=== PATIENT | male | born 1990 | race Caucasian/White ===

== ENCOUNTER 2024-01-25 00:35 | Emergency (ER) | payer SELFPAY ==
[2024-01-25 00:42] VITALS: BP 149/80
[2024-01-25 00:44] VITALS: BP 149/80
[2024-01-25 00:59] LABS: Glucose - Point of Care 91 mg/dl (70-99)
[2024-01-25 01:00] VITALS: BP 133/71
--- NOTE | 2024-01-25 01:13 | ED.GENMED ---
History of Present Illness
<Octavio Pyle PA-C - Last Filed: 01/25/24 01:21>
General
Chief Complaint: Change Level of Consciousness
Source: police
Time Seen by Provider: 01/25/24 01:06
Travel History
Have you had any contact with someone who has COVID-19?: Unable to Answer
Do you have any symptoms of coronavirus? Fever > 100 degrees, chills, cough, shortness of breath, sore throat, loss of taste or smell, muscle aches, or headache?: Unable to Answer
History of Present Illness
History of Present Illness:
33-year-old male presenting the emergency department via [place] police for medical clearance for incarceration. Patient was picked up on a warrant in [place] but this morning was apparently valid in [facility] so patient was brought here.
Patient admits to active substance abuse with last use being a few hours ago. No other physical complaints. Patient clearly intoxicated.
Past History
<Octavio Pyle PA-C - Last Filed: 01/25/24 01:21>
Past History
ED Past Medical History: Psychiatric
ED Past Surgical History: None
Social History
Tobacco: Smoker
Alcohol: None
Drug: Narcotics and IVDA
Personal: Single
Living: alone
Review of Systems
<Octavio Pyle PA-C - Last Filed: 01/25/24 01:21>
Review of Systems
All Other Systems: ROS reviewed and negative except as documented in HPI and ROS
Phy Exam
<Octavio Pyle PA-C - Last Filed: 01/25/24 01:21>
Physical Exam
Physical Exam:
GENERAL: Sleeping but arousable to voice, in no apparent distress
EYE: conjunctiva clear, pupils 2 mm
Head: Normocephalic atraumatic
NECK: Supple,
ENT: Mildly dry mucous membranes
LUNGS: no acute respiratory distress
NEUROLOGICAL: Alert and oriented
SKIN: Warm and dry, small older appearing right axillary abscess with mild erythema
MUSCULOSKELETAL: well perfused.
PSYCH: Normal and appropriate interaction.
Scores
<Octavio Pyle PA-C - Last Filed: 01/25/24 01:21>
Heart Failure Risk
Heart Failure Risk Score: Not Applicable
Heart Score for Chest Pain Patients
STEMI patient?: Not applicable
Withdrawal Assessment of Alcohol
Withdrawal Assessment Completed?: Not applicable
Course
<Octavio Pyle PA-C - Last Filed: 01/25/24 01:21>
Orders/Labs/Results
Orders:
Orders
01/25/24 00:48
Electrocardiogram (*1) Urgent
Reason for Study: Other
Other Reason for Exam: Potential overdose
01/25/24 00:48
01/25/24 00:48
Vital Signs
Initial and Last Documented VS:
Initial Vital Signs
Pulse Ox
99
01/25/24 00:41
Last Documented Vital Signs
Temp Pulse Resp BP Pulse Ox
98.5 F 87 19 133/71 100
01/25/24 00:44 01/25/24 01:15 01/25/24 01:15 01/25/24 01:00 01/25/24 01:15
<Maximus Cagle DO - Last Filed: 01/25/24 02:19>
Orders/Labs/Results
Orders:
Orders
01/25/24 00:48
Electrocardiogram (*1) Urgent
Reason for Study: Other
Other Reason for Exam: Potential overdose
01/25/24 00:48
01/25/24 00:48
Vital Signs
Initial and Last Documented VS:
Initial Vital Signs
Pulse Ox
99
01/25/24 00:41
Last Documented Vital Signs
Temp Pulse Resp BP Pulse Ox
98.5 F 87 19 133/71 100
01/25/24 00:44 01/25/24 01:15 01/25/24 01:15 01/25/24 01:00 01/25/24 01:15
<Octavio Pyle PA-C - Last Filed: 01/25/24 01:21>
MDM/Problems Addressed
MDM/Problems Addressed:
33-year-old male presenting emergency department for medical clearance. Patient does have a older appearing abscess to his right axilla. He otherwise has no indication for continued emergency department evaluation and is medically cleared for
incarceration. Prescription for doxycycline and Zofran provided.
<Octavio Pyle PA-C - Last Filed: 01/25/24 01:21>
*Pulse Oximetry
Patient hypoxic: no
*Critical Care Note
Total Time (30-74mins, 75-104mins- exclusive of procedures): Not Applicable
ED Attending Note
<Octavio Pyle PA-C - Last Filed: 01/25/24 01:21>
-
Portions of this chart may have been created with voice recognition software.� Occasional wrong word or��sound alike� substitutions may have occurred due to the inherent limitations of voice recognition software.
<Maximus Cagle DO - Last Filed: 01/25/24 02:19>
ED Attending Note
Patient seen and examined by attending physician: Yes
I performed the substantive portion of visit, reviewed & personally made and approve the management plan that is documented in note by myself or TORIN.: Yes
ED Attending Note:
33-year-old male who was sent by present for evaluation. Patient states he last used drugs several hours ago. He complains of pain in the right armpit. Exam: Multiple small areas of skin popping noted to the arms bilaterally. Very faint small
pustule noted to the right forearm without significant surrounding redness. He does have 2 indurated lesions in the right armpit without fluctuance and that are about 1 cm only. Afebrile. Assessment and plan: Cover with antibiotics. Transfer to
present
Discharge Plan
Departure
Patient Disposition: Longterm
Date of Disposition: 01/25/24
Time of Disposition: 01:13
Discharge Problem:
Substance abuse, Abscess of axilla, right
Prescriptions:
New
doxycycline hyclate 100 mg tablet
100 mg PO BID 10 Days Qty: 20 0RF
ondansetron 4 mg tablet,disintegrating
4 mg PO TIDPRN PRN (Reason: nausea/vomiting) Qty: 10 0RF
Activity Restrictions/Additional Instructions:
Patient is medically cleared for incarceration
Interventions
Interventions:
*Risk Screen - Suicide Last Done: 01/25/24 00:44
*General Assessment Last Done: 01/25/24 00:44
*Neglect/Abuse Screening Last Done: 01/25/24 00:44
*Nursing Disposition Last Done: 01/25/24 01:42
ED- Cardiac Assessment Last Done: 01/25/24 01:03
ED- Neurological Assessment Last Done: 01/25/24 01:03
ED-Psychological Assessment Last Done: 01/25/24 01:03
ED- Pulmonary Assessment Last Done: 01/25/24 01:03
Discharge Date and Time
Discharge Date/Time: 01/25/24 01:49
Print Language: [email or web address]
== END 2024-01-25 01:49 ==
LOC: EMR 00:35
PROVIDERS: EMERGENCY PHYSICIAN Emergency Medicine
DX: F19.10 Other psychoactive substance abuse, uncomplicated (principal); L02.411 Cutaneous abscess of right axilla; Z02.79 Encounter for issue of other medical certificate; F17.200 Nicotine dependence, unspecified, uncomplicated
CPT/HCPCS: 99283; 82962